=== PATIENT | female | born 1985 | race Caucasian/White ===

== ENCOUNTER → 2017-11-02 | Outpatient (CLI) | payer OTHER ==
[~2017-11-02] VITALS: Ht 162.6 cm; Wt 56.7 kg
[~2017-11-02] MED LIST: BIRTH CONTROL; PANT20TA58 PO; RANI75TA12 PO; SINCALIDE 1.14 MCG in IV NORMAL SALINE 50ML 30 ML IV ONE
--- NOTE | 2017-11-02 09:53 | RAD ---
Complete abdominal ultrasound 11/02/2017 8:18 AM Clinical History: Intermittent abdominal pain x1 year Technique: Ultrasound examination of the abdomen was performed, and multiple static images were submitted for review. Comparison: None available Findings: The visualized portions of the pancreas are within normal limits. The visualized aorta and IVC are unremarkable. The gallbladder is normal in appearance without wall thickening, stones, or sludge. No pericholecystic fluid is seen. Sonographic Bear's sign is negative. The common bile duct measures 4 mm in diameter which is within normal limits. The liver measures 15.6 cm longitudinally. The liver is normal in echotexture. No intrahepatic biliary ductal dilatation is seen. No focal hepatic lesions are identified. Spleen is poorly visualized but appears grossly normal in size. The bilateral kidneys are normal in appearance without evidence of obstructive uropathy, nephrolithiasis, or focal renal lesion. Right kidney measures 10.6 cm in length. Left kidney measures 10.9 cm in length. Impression: Normal sonographic evidence of intra-abdominal abnormality is identified Electronically signed by: Wing Lindquist MD (11/02/2017 9:49 AM) [id number]
--- NOTE | 2017-11-02 13:09 | RAD ---
EXAM: Nuclear hepatobiliary scan. HISTORY: Pain and nausea. TECHNIQUE: Following intravenous administration of 5.5 mCi Tc 99m Choletec, anterior images of the abdomen were obtained at five minute intervals through one hour. Subsequently, 1.14 mcg sincalide was administered and additional images to assess gallbladder ejection fraction were obtained. FINDINGS: There is prompt radiotracer uptake by the liver. No focal defect is seen. There is normal excretion into the biliary tree. The gallbladder is visualized within 15 minutes and there is free flow into the duodenum. The gallbladder ejection fraction is 17%. IMPRESSION: Decreased gallbladder ejection fraction of 17%. Electronically signed by: Liane Montgomery MD (11/02/2017 1:05 PM) [id number]
== END | disposition home or self-care (01) ==
LOC: US 07:46
PROVIDERS: ATTEND Internal Medicine Gastroenterology
DX: R10.84 Generalized abdominal pain (principal); R11.0 Nausea
CPT/HCPCS: 76700; 78226; 96374; 96375; A9537; J2805